=== PATIENT | female | born 1955 | race Caucasian/White ===

== ENCOUNTER → 2016-11-23 | Outpatient (REF) | payer BC | LOC: M LAB REF 18:04 | PROVIDERS: ATTEND Internal Medicine | DX: Z85.3 Personal history of malignant neoplasm of breast (principal) ==

== ENCOUNTER → 2017-11-25 | Outpatient (REF) | payer BC ==
[2017-11-26 08:31] LABS: CARCINOEMBRYONIC ANTIGEN 2.4 NG/ML (<2.5)
== END ==
LOC: M LAB REF 17:17
DX: Z85.3 Personal history of malignant neoplasm of breast (principal)
CPT/HCPCS: 82378

== ENCOUNTER → 2017-12-01 | Outpatient (CLI) | payer BC | LOC: M RAD 09:22 | DX: R10.9 Unspecified abdominal pain (principal); Z85.3 Personal history of malignant neoplasm of breast | CPT/HCPCS: 78306 ==

== ENCOUNTER → 2018-11-24 | Outpatient (REF) | payer BC, MEDICARE | LOC: M LAB REF 12:46 | PROVIDERS: ATTEND Internal Medicine | DX: Z85.3 Personal history of malignant neoplasm of breast (principal) ==

== ENCOUNTER → 2018-12-06 | Outpatient (CLI) | payer MEDICARE ==
--- NOTE | 2018-12-07 10:18 | REP ---
PET/CT: HISTORY: Restaging breast cancer. History of breast cancer diagnosed in 2007. The patient is status post bilateral mastectomy with bilateral breast reconstruction. Elevated CEA level. COMPARISONS: No comparison PET/CT. Comparison CT study of the chest is from December 16, 2012. TECHNIQUE: 49 minutes following the intravenous injection of a 9.02 mCi dose of F-18 FDG, three-dimensional PET scintigraphy is acquired from the skull base to the proximal thighs. Triplanar noncontrast CT scanning is acquired through the same anatomic range for attenuation correction, and image registration with scan parameters optimized to minimize radiation exposure to the patient. PET scintigraphy and CT datasets were fused and displayed on a workstation with multiplanar and projection display capability. PET/CT FINDINGS: Bilateral breast augmentation implants are noted. There is mildly hypermetabolic lymph node uptake in three separate right axillary lymph nodes. Maximum SUV value in these lymph nodes ranges from 3.05 to 5.90. No other abnormal hypermetabolic uptake is visible. Head and neck soft tissues are unremarkable. No abnormal hepatic or abdominal or pelvic hypermetabolic uptake is seen. Scan is otherwise unremarkable. IMPRESSION: There is mildly hypermetabolic uptake in three right axillary lymph nodes. Axillary sonography can be performed and if lymph nodes can be identified, ultrasound guided needle biopsy can be contemplated. Electronically Signed by Alfred Anderson MD 12/07/2018 08:54 P
== END ==
LOC: M PLARAD 15:21
PROVIDERS: ATTEND Internal Medicine
DX: Z85.3 Personal history of malignant neoplasm of breast (principal); Z90.12 Acquired absence of left breast and nipple; Z90.11 Acquired absence of right breast and nipple; R97.0 Elevated carcinoembryonic antigen [CEA]
CPT/HCPCS: 78815; A9552

== ENCOUNTER → 2018-12-15 | Outpatient (CLI) | payer MEDICARE ==
--- NOTE | 2018-12-15 12:35 | REP ---
REASON: Right upper extremity lymphadenopathy. Right axillary ultrasonography (not breast) was obtained. Multiple ultrasonographic images of the right axilla (not breast) were obtained in the longitudinal and transverse scan planes. There are multiple peripherally hypoechoic centrally echogenic reniform shaped nodules seen throughout the right axilla, all consistent with lymph nodes, the largest of which having a maximal dimension of 1.4 cm. There is no evidence of mariluz lymphadenopathy as the cross sectional short axis dimension of that largest node measures 7 mm. IMPRESSION: No pathology noted. Findings as described above. Electronically Signed by Bernabe Murray DO 12/15/2018 12:41 P
== END ==
LOC: M RAD 10:25
PROVIDERS: ATTEND Internal Medicine
DX: R59.1 Generalized enlarged lymph nodes (principal)

== ENCOUNTER → 2021-10-06 | Outpatient (CLI) | payer MEDICARE | LOC: M WHC 08:45 | PROVIDERS: ATTEND Internal Medicine | DX: M85.851 Other specified disorders of bone density and structure, right thigh (principal) ==

== ENCOUNTER → 2021-11-06 | Outpatient (CLI) | payer MEDICARE | LOC: M WHC 10:28 | PROVIDERS: ATTEND Internal Medicine | DX: R19.09 Other intra-abdominal and pelvic swelling, mass and lump (principal) ==

== ENCOUNTER → 2024-11-17 | Outpatient (CLI) | payer MEDICARE | LOC: M WHC 08:39 | PROVIDERS: ATTEND Internal Medicine | DX: M85.851 Other specified disorders of bone density and structure, right thigh (principal); M85.852 Other specified disorders of bone density and structure, left thigh ==